=== PATIENT | female | born 1940 | race Caucasian/White ===

== ENCOUNTER 2023-04-19 14:26 | Emergency (ER) | payer MEDICARE, OTHER, SELFPAY ==
[2023-04-19] VITALS (12 sets, daily range): BP systolic 94–153; BP diastolic 47–79; PULSE 79–87; RESP 14–18; TEMP 36.5–36.9; O2SAT 96–99
--- NOTE | ~2023-04-19 | CT_ITS ---
EXAMINATION: CT brain wo con DATE: 04/19/2023 17:24 INDICATION: Altered mental status. TECHNIQUE: Computed tomography (CT) of the head was performed without intravenous contrast. The mA wa s adjusted according to patient size. Iterative reconstruction technique was employed. The dose-lengt h product was 605.33 mGy-cm. COMPARISON: None FINDINGS: There is a 6 mm hyperdense colloid cyst in the anterior third ventricle. Cavum septum pellu cidum is noted. There is chronic encephalomalacia in the frontal lobes and left thalamus. There is a left frontal ventriculostomy catheter with tip in frontal horn of left lateral ventricle. The lateral ventricles are small. There is a 13 mm calcified extra-axial mass overlying right frontal lobe. Ther e is no intracranial hemorrhage or acute infarction. There are likely changes of ocular lens replacem ent surgeries. There is mucosal thickening in the paranasal sinuses. The mastoid air cells are normal . There is an old jorge luis hole in right frontal skull. IMPRESSION: 1. Chronic encephalomalacia in the frontal lobes and left thalamus. 2. 6 mm colloid cyst in the anterior third ventricle. 3. Small lateral ventricles. Shunt catheter in expected position. 4. 13 mm calcified extra-axial mass overlying right frontal lobe, likely a meningioma. Reviewed, dictated and finalized at location A. OL AGE PROGRAM TEACHER IMPRESSION: 1. Chronic encephalomalacia in the frontal lobes and left thalamus. 2. 6 mm colloid cyst in the anterior third ventricle. 3. Small lateral ventricles. Shunt catheter in expected position. 4. 13 mm calcified extra-axial mass overlying right frontal lobe, likely a meni ngioma.
--- NOTE | ~2023-04-19 | XR_ITS ---
EXAMINATION: XR shunt series DATE: 04/19/2023 17:41 INDICATION: Intraperitoneal shunt evaluation TECHNIQUE: AP and lateral views of the head and neck and AP view of the chest, abdomen and pelvis wer e obtained. COMPARISON: Head CT dated 04/19/2023 FINDINGS: Left frontal ventriculoperitoneal shunt which extends through a left frontal jorge luis hole to a radioluce nt valve projecting over the skull. The shunt catheter courses caudally along the left side of the he ad and neck and along the left-sided anterior chest with the distal portion of the catheter projectin g caudal to the left upper quadrant of the abdomen. No sharp angulation toward discontinuities along the course of the catheter. There is an additional segment of catheter tubing potentially related to an earlier shunt catheter which projects over the right side of the mediastinum. Visualized portion of the lungs are clear no focal airspace opacities, pulmonary edema, pleural effus ion or pneumothorax. Heart size is normal. Dual lead pacemaker/AICD seen with leads projecting over t he expected locations of the right atrium and right ventricle. No dilated loops of gas-filled bowel i n the visualized abdomen. Partially visualized right total hip arthroplasty. IMPRESSION: 1. No evident kinks or discontinuities along the course of a left ventriculoperitoneal shunt. Reviewed, dictated and finalized at location A. ICATION ENGINEER IMPRESSION: 1. No evident kinks or discontinuities along the course of a left ventriculoper itoneal shunt.
--- NOTE | 2023-04-19 15:06 | ECG_ITS ---
Measurements Intervals [place] Rate: 81 P: 52 CA: 171 QRS: 32 QRSD: 108 T: 50 QT: 316 QTc: 369 Interpretive Statements ELECTRONIC ATRIAL PACEMAKER NONSPECIFIC ST & T-WAVE ABNORMALITY ABNORMAL ECG NO PREVIOUS ECG AVAILABLE FOR COMPARISON Electronically Signed On 04-20-2023 12:33:28 SENIOR MARKET RESEARCH ANALYST by Manuel Thibodeaux M.D.
--- NOTE | 2023-04-19 15:08 | ED.AMS ---
HPI - Altered Mental Status General Chief Complaint: Altered Mental Status Stated Complaint: falls Time Seen by Provider: 04/19/23 14:37 History of Present Illness HPI narrative: patient is an 83-year-old female with history of dementia and intracranial trauma. She has had her shunt for many years and has not had any recent issues. She is followed by Dr. Lozano. reports patient has had increasing difficulty with ambulation over last month he has had falls. No fall today but increased difficulty walking because she is wobbling all the time. No reports of fevers or chills or sweats. He reports she has had decreased oral intake. Patient does appear dry clinically. She has worn x1 cannot provide any history. is unsure of what medical problems she has and only that she takes about 13 medications. Related Data Allergies Allergy/AdvReac Type Severity Reaction Status Date / Time No Known Allergies Allergy Verified 04/19/23 19:02 Review of Systems Review of Systems: ROS unobtainable: Yes unobtainable due to mental status PMFSH Past Medical History Medical History (Updated 04/19/23 @ 19:47 by Alejandro Whitehead MD) Atrial fibrillation Congestive heart failure Dementia Hyperlipidemia Hypertension Hypothyroidism Surgical History Surgical History (Updated 04/19/23 @ 17:14 by Alejandro Whitehead MD) S/P MUSEUM LIBRARIAN shunt Exam Narrative: GENERAL: chronically ill/frail-appearing, and in no acute distress. HEAD: Normocephalic, atraumatic. ENT: dry mucous membranes. NECK: Supple. CHEST: Clear to auscultation. No respiratory distress. HEART: Regular rate and rhythm. Normal peripheral pulses. ABDOMEN: Soft, nontender, nondistended. EXTREMITIES: Normal range of motion. No edema. SKIN: Warm, dry, no rash. NEURO: Alert and oriented x1. Course Course Emergency Course: patient hydrated. Orthostatics improved. Ambulates steadily and at her baseline. Discharged with . Vital Signs Vital signs: Vital Signs Temperature 98 F 04/19/23 14:28 Pulse Rate 82 04/19/23 14:28 Respiratory Rate 16 04/19/23 14:28 Blood Pressure 94/47 L 04/19/23 14:28 Pulse Oximetry 99 04/19/23 14:28 Oxygen Delivery Room Air 04/19/23 14:28 Temperature 98.4 F 04/19/23 19:22 Pulse Rate 83 04/19/23 19:22 Respiratory Rate 14 04/19/23 19:22 Blood Pressure 153/62 H 04/19/23 19:22 Pulse Oximetry 98 04/19/23 19:22 Oxygen Delivery Room Air 04/19/23 15:10 MDM - Altered Mental Status Lab Data 04/19/23 15:12 04/19/23 15:12 Labs: Lab Results 04/19/23 04/19/23 Range/Units 15:12 15:41 WBC 8.1 (4.5-10.0) K/mm3 RBC 4.75 (4.2-5.4) M/mm3 Hgb 13.7 (12.0-15.0) g/dL Hct 44.1 (37.0-47.0) % MCV 92.8 (80-100) fl MCH 28.8 (26-34) pg MCHC 31.1 L (32-36) g/dl RDW 13.2 (11.5-14.5) % Plt Count 292 (150-375) k/mm3 MPV 9.9 (7.4-10.4) fl Immature Gran % (Auto) 0.4 (0-0.5) % Neut % (Auto) 59.0 (45.5-73.1) % Lymph % (Auto) 29.3 (18.3-44.2) % Fisher % (Auto) 7.2 (2.6-8.5) % Eos % (Auto) 3.2 (0-4.4) % Baso % (Auto) 0.9 (0.2-1.2) % Lymph # (Auto) 2.36 (0.9-3.2) K/mm3 Fisher # (Auto) 0.6 (0.1-0.6) K/mm3 Eos # (Auto) 0.3 (0-0.3) K/mm3 Baso # (Auto) 0.1 (0.0-0.1) K/mm3 Abs Immat Gran (auto) 0.03 (0.00-0.031) K/mm3 Absolute Neuts (auto) 4.8 (1.3-6.7) K/mm3 Absolute Nucleated RBC 0.0 (0.0-0.012) K/mm3 Nucleated RBC % 0.0 (0.0-0.2) % PT 13.3 (11.1-14.7) Seconds INR 1.0 APTT 30.8 (22.3-36.8) SECONDS Sodium 136 L (137-145) mmol/L Potassium 3.2 L (3.4-5.0) mmol/L Chloride 96 L (98-107) mmol/L Carbon Dioxide 37 H (22-30) mmol/L Anion Gap 3 L (8-16) mmol/L BUN 10 (7-17) mg/dL Creatinine 0.90 (0.7-1.0) mg/dL Estim Creat Clear Calc 37 ml/min Estimated GFR 60 (59 - ) Glucose 139 H (65-110) mg/dL Calcium 9.6 (8.4-10.2) mg/dL Total
[2023-04-19 15:22] LABS: Basophils Absolute Auto 0.1 K/mm3 (0.0-0.1); Basophils Percent Auto 0.9 % (0.2-1.2); Eosinophils Absolute Auto 0.3 K/mm3 (0-0.3); Eosinophils Percent Auto 3.2 % (0-4.4); Hematocrit 44.1 % (37.0-47.0); Hemoglobin 13.7 g/dL (12.0-15.0); Immature Granulocyte Absolute 0.03 K/mm3 (0.00-0.031); Immature Granulocyte Percent A 0.4 % (0-0.5); Lymphocytes Absolute Auto 2.36 K/mm3 (0.9-3.2); Lymphocytes Percent Auto 29.3 % (18.3-44.2); Mean Corpuscular HGB Conc 31.1 g/dl (32-36); Mean Corpuscular Hemoglobin 28.8 pg (26-34); Mean Corpuscular Volume 92.8 fl (80-100); Mean Platelet Volume 9.9 fl (7.4-10.4); Monocytes Absolute Auto 0.6 K/mm3 (0.1-0.6); Monocytes Percent Auto 7.2 % (2.6-8.5); Neutrophils Absolute Auto 4.8 K/mm3 (1.3-6.7); Platelet Count Result 292 k/mm3 (150-375); Red Blood Count 4.75 M/mm3 (4.2-5.4); Red Cell Distribution Width 13.2 % (11.5-14.5); White Blood Count 8.1 K/mm3 (4.5-10.0)
[2023-04-19 15:33] LABS: Prothrombin Time 13.3 Seconds (11.1-14.7)
[2023-04-19 15:34] LABS: Partial Thromboplastin Time 30.8 SECONDS (22.3-36.8)
[2023-04-19 15:36] LABS: Alanine Aminotransferase 11 U/L (6-35); Alkaline Phosphatase 182 U/L (38-126); Anion Gap 3 mmol/L (8-16); Aspartate Amino Transferase 22 U/L (14-36); Bilirubin,Total 0.9 mg/dL (0.2-1.3); Blood Urea Nitrogen 10 mg/dL (7-17); Calcium 9.6 mg/dL (8.4-10.2); Carbon Dioxide 37 mmol/L (22-30); Chloride 96 mmol/L (98-107); Estimated CRCL calculation 37 ml/min; Estimated Glomerular Filt Rate 60; Glucose 139 mg/dL (65-110); Potassium 3.2 mmol/L (3.4-5.0); Sodium 136 mmol/L (137-145)
[2023-04-19 15:52] LABS: Appearance Urine Clear (Clear); Bilirubin Urine Negative (Negative); Blood Urine Negative (Negative); Color Urine Yellow (Yellow); Glucose Urine UA Negative (Negative); Ketones Urine Negative (Negative); Leukocyte Esterase Ur Negative LEU/UL (Negative); Nitrate Urine Negative (Negative); Protein Urine Negative (Negative); Specific Grav Ur 1.012 (1.001-1.035)
[2023-04-19 15:55] LABS: Add Urine Microscopic? NO
[2023-04-19] MEDS: SODIUM CHLORIDE 0.9% IV 500 ML 999 ML IV CONT (19:05)
== END 2023-04-19 20:19 | disposition home or self-care (01) ==
PROVIDERS: Emergency Provider Emergency Medicine
DX: E86.0 Dehydration (principal); R42 Dizziness and giddiness; I48.91 Unspecified atrial fibrillation; I11.0 Hypertensive heart disease with heart failure; I50.9 Heart failure, unspecified; E03.9 Hypothyroidism, unspecified; F03.90 Unspecified dementia, unspecified severity, without behavioral disturbance, psychotic disturbance, mood disturbance, and anxiety
CPT/HCPCS: 36415; 70250; 70450; 71045; 74018; 80053; 81003; 85025; 85610; 85730; 93005; 96360; 99284; J7040